=== PATIENT | male | born 1985 | race African-American/Black ===

== ENCOUNTER 2022-06-19 12:11 | Emergency (ER) | payer OTHER, SELFPAY ==
[2022-06-19 12:36] VITALS: BP 127/77; PULSE 66; RESP 18; TEMP 36.9; O2SAT 98; BMI 26.8
--- NOTE | 2022-06-19 12:47 | ED_ITS ---
HPI - Neck Pain/Injury General Chief Complaint: Neck Injury/Pain Stated Complaint: Left side neck pain Time Seen by Provider: 06/19/22 12:25 Source: patient and RN notes reviewed Mode of arrival: ambulatory Limitations: no limitations History of Present Illness HPI Narrative: 37-year-old man presenting to the emergency department now 4th day sided neck pain. It does not really radiate down his arm but couple nights ago will come out of sleep and uses feeling pain all over. He did wake with this pain on initial onset. Worse with rotation of his neck to the left as well as slightly rotated to the right and then extending his neck causes increase in his pain. He is rating it a 7/10. He is having to sleep on his back; any other position does cause a great deal of discomfort. Works in [employer]. Does not recall any particular injury. It has been 3 weeks since he has been to the gym and normally works out regularly. He has tried treatment with stretching and a Tylenol combination product. Noted. Related Data Home Medications Medication Instructions Recorded Confirmed multivitamin (Daily Multi-Vitamin 1 tab PO DAILY 06/19/22 06/19/22 tablet) Previous Rx's Medication Instructions Recorded prednisone 20 mg tablet 20 mg PO DAILY #14 tabs 06/19/22 tramadol 50 mg tablet 50 - 100 mg PO Q8H PRN pain #15 06/19/22 tabs Allergies Allergy/AdvReac Type Severity Reaction Status Date / Time No Known Drug Allergies Allergy Verified 06/19/22 12:36 Review of Systems Status of ROS: Reports: 6 or more systems reviewed and unremarkable except as noted in History and below [facility] Medical History (Updated 07/04/22 @ 00:01 by ) No significant past medical history Surgical History (Updated 06/19/22 @ 12:49 by Radha Russo RN) S/P hernia surgery Social History Smoking Status: Current every day smoker How often do you have a drink containing alcohol: never AUDIT-C Alcohol total score: 0 Non-prescribed substance use: marijuana (any form) Exam Narrative: Exam Narrative: Pleasant. Calm. Well muscled extensive tattooing over his arms. Skin otherwise is warm and dry without rash or blisters. Head looks to be atraumatic. Neck is supple though does have some discomfort elicited more with rotation to the left. Not completely full rotation to the left. A orozco testing does not exhibit it is more the extension to the left that elicits more discomfort. He is sore to palpation in the left low paracervical musculature. No midline tenderness. Lungs appear to be clear with equal expansion excursion. moves all extremities without difficulty. Ring throughout.Good perfusion peripherally. Const: Vital Signs, click to edit/add: Vital Signs - 24 hr 06/19/22 12:36 06/19/22 13:30 Temperature 98.4 F 98.4 F Pulse Rate [Right Pulse Oximeter] 66 66 Respiratory Rate 18 18 Blood Pressure [Ri ght Upper Arm] 127/77 127/77 Pulse Oximetry 98 Oxygen Delivery Me thod Room Air Documenting provider has reviewed patient's vital signs: yes Course Vital Signs Vital signs: Initial Vital Signs Temperature 98.4 F 06/19/22 12:36 Temperature Source Temporal Artery Scan 06/19/22 12:36 Pulse Rate 66 06/19/22 12:36 Respiratory Rate 18 06/19/22 12:36 Blood Pressure 127/77 06/19/22 12:36 Blood Pressure Mean 93 06/19/22 12:36 Blood Pressure Position Sitting 06/19/22 12:36 Pulse Oximetry 98 06/19/22 12:36 Oxygen Delivery Method 06/19/22 12:36 Vital Signs Temperature 98.4 F 06/19/22 12:36 Pulse Rate 66 06/19/22 12:36 Respiratory Rate 18 06/19/22 12:36 Blood Pressure 127/77 06/19/22 12:36 Pulse Oximetry 98 06/19/22 12:36 Oxygen Delivery Method 06/19/22 12:36 Temperature 98.4 F 06/19/22 13:30 Pulse Rate 66 06/19/22 13:30 Respiratory Rate 18 06/19/22 13:30 Blood Pressure 127/77 06/19/22 13:30 Pulse Oximetry 98 06/19/22 12:36 Oxygen Delivery Method 06/19/22 12:36 MDM - Neck Pain/Injury MDM Narrative Medical decision making narrative: Seems to have some degree of inflammation impingement in the neck. Without traumatic back story do not feel imaging necessary at this time. Discharge Plan Discharge Clinical Impression: Torticollis, Cervicalgia Patient Disposition: Home, Self-Care Condition: Stable Additional Instructions: Stretches to include neck pull-downs toward each collarbone and centrally a few times daily. Gently. Slowly. Little deeper each time. see handout for stretches of the upper back. I would consider making an appointment with an osteopathic physician locally like umm Baltazar or G[facility]mez at the [facility]. alternatively chiropractors Shaji Navarrete or Vickie Sousa. you could also be seen by a primary care provider could also refer you to physical therapy if needed. Can take up to 800 mg of ibuprofen per dose or alternative to that would be up to 500 mg naproxen 2 times daily. Either can be combined with up to 1000 mg of acetaminophen per dose. tramadol and prednisone from [facility] take the prednisone as 60 mg daily for 2 days then 40 mg daily for 4 days. Prescriptions: New prednisone 20 mg tablet 20 mg PO DAILY Qty: 14 0RF Rx Instructions: Take 60 mg daily for 2 days, then 40 mg daily for 4 days tramadol 50 mg tablet 50 - 100 mg PO Q8H PRN (Reason: pain) Qty: 15 0RF No Action multivitamin [Daily Multi-Vitamin] Tablet 1 tab PO DAILY Follow Up/Referrals: Esme Bradley MD [Primary Care Provider] - Stand Alone Forms: [facility] Info Instructions
[2022-06-19 13:30] VITALS: BP 127/77; PULSE 66; RESP 18; TEMP 36.9
== END 2022-06-19 13:30 | disposition home or self-care (01) ==
PROVIDERS: Emergency Provider Family Medicine; PCP Family Medicine
DX: M43.6 Torticollis (principal); M54.2 Cervicalgia
CPT/HCPCS: 99283